=== PATIENT | male | born 1945 | race Caucasian/White ===

== ENCOUNTER 2019-06-15 13:38 | Emergency (ER) | payer MEDICARE, OTHER ==
[2019-06-15] MEDS ORDERED: Sodium Chloride 0.9% 1,000 ML IV ONE (13:50)
[2019-06-15] MEDS ORDERED: Ondansetron 4 MG/2 ML SDV IVPUSH ONE ×2 (13:50→14:25)
[2019-06-15] MEDS ORDERED: Sodium Chloride 0.9% 10 ML Syringe FLUSH PRN (13:50)
[2019-06-15 14:32] LABS: ANION GAP 16.5 mmol/L (5-15); CHLORIDE,CL 105 mmol/L (98-115); SODIUM,NA 149 mmol/L (136-145)
--- NOTE | 2019-06-15 14:32 | EDM.PDOC ---
ED HPI GENERAL MEDICAL PROBLEM - General Chief Complaint: General Stated Complaint: CAN'T KEEP ANYTHING DOWN Time Seen by Provider: 06/15/19 14:24 Source of Information: Reports: Patient History Limitations: Reports: No Limitations - History of Present Illness INITIAL COMMENTS - FREE TEXT/NARRATIVE: Patient is a 73-year-old gentleman who presents to the emergency department this afternoon with a complaint of abdominal pain, nausea and vomiting. Patient states approximately 1500 yesterday, He felt nauseous, had some abdominal discomfort and vomited. He has vomited several times since. Patient states the previous day he had eaten barbecue but consumed nothing since then. Patient describes abdominal pain as fullness, achy, and generalized. Patient thought that he saw blood in vomitus. Patient is currently on warfarin for atrial fibrillation. Patient wears oxygen at night and intermittent during the day and admits to chronic shortness of breath with ambulation. Patient denies chest pain, fever, blood in stool, dizziness, headache, blurry vision, or flank pain. Onset: Gradual Onset Date: 06/14/19 Onset Time: 15:00 Duration: Day(s): Location: Reports: Abdomen Quality: Reports: Ache, Pressure Severity: Mild Improves with: Reports: None Worsens with: Reports: None Associated Symptoms: Reports: Nausea/Vomiting Lower Abdomen Pain Score (Numeric/FACES): 4 - Related Data Allergies Allergy/AdvReac Type Severity Reaction Status Date / Time No Known Drug Allergies Allergy NKDA Verified 06/15/19 14:16 Home Meds: Home Meds Aspirin [Halfprin] 81 mg PO BRK 08/01/16 [History] Omeprazole Magnesium [Prilosec Otc] 40 mg PO DAILY 08/01/16 [History] Quinapril [Accupril] 10 mg PO DAILY 08/01/16 [History] Warfarin [Coumadin] 5 mg PO .Pharmacy To Dose 08/01/16 [History] atorvaSTATin [Lipitor] 10 mg PO MOWEFR 08/01/16 [History] metFORMIN [Glucophage] 500 mg PO DAILY 08/01/16 [History] Acetaminophen 500 mg PO Q4HR PRN 06/15/19 [History] Albuterol Sulfate [Albuterol Sulfate Hfa] 2 puff INH Q4HR PRN 06/15/19 [History] Diltiazem HCl [Cardizem Cd] 1 cap PO DAILY 06/15/19 [History] Furosemide [Lasix] 40 mg PO DAILY 06/15/19 [History] Iron Polysaccharides Complex [Ferrex 150] 1 cap PO DAILY 06/15/19 [History] Montelukast [Singulair] 10 mg PO BEDTIME 06/15/19 [History] Potassium Chloride [K-Tab ER] 1 tab PO DAILY 06/15/19 [History] Umeclidinium [place] [Incruse Ellipta*] 1 puff INH DAILY 06/15/19 [History] amLODIPine [Norvasc] 5 mg PO DAILY 06/15/19 [History] Social & Family History - Caffeine Use Caffeine Use: Reports: None ED ROS GENERAL - Review of Systems Review Of Systems: ROS reveals no pertinent complaints other than HPI. Constitutional: Reports: No Symptoms HEENT: Reports: No Symptoms Respiratory: Reports: No Symptoms Cardiovascular: Reports: No Symptoms Endocrine: Reports: No Symptoms GI/Abdominal: Reports: Abdominal Pain, Nausea, Vomiting : Reports: No Symptoms Musculoskeletal: Reports: No Symptoms Skin: Reports: No Symptoms Neurological: Reports: No Symptoms Psychiatric: Reports: No Symptoms Hematologic/Lymphatic: Reports: No Symptoms Immunologic: Reports: No Symptoms ED EXAM, GENERAL - Physical Exam Exam: See Below Exam Limited By: No Limitations General Appearance: Alert, WD/WN, No Apparent Distress Nose: Normal Inspection, No Blood Throat/Mouth: Normal Inspection, Normal Oropharynx, No Airway Compromise Head: Atraumatic, Normocephalic Neck: Normal Inspection Respiratory/Chest: No Respiratory Distress, Crackles (Bibasilar) Cardiovascular: No Murmur, Tachycardia, Irregularly Irregular GI/Abdominal: Normal Bowel Sounds, No Abnormal Bruit, Tender (Diffusely), Abnormal Bowel Sounds (Hypoactive), Other (Obese) Back Exam: Normal Inspection. No: CVA Tenderness (L), CVA Tenderness (R) Extremities: Pedal Edema (2+ bilateral) Neurological: Alert, Oriented, Normal Cognition Psychiatric: Normal Affect, Normal Mood Skin Exam: Warm, Dry, Intact, Normal Color, No Rash Lymphatic: No Adenopathy EKG INTERPRETATION EKG Date: 06/15/19 Time: 15:35 Rhythm: A-Fib Rate (Beats/Min): 120 [place]: Normal QRS: Normal ST-T: Normal QT: Normal Comparison: NA - No Prior EKG Course - Vital Signs Last Recorded V/S: Last Vital Signs Temp 98.1 F 06/15/19 16:38 Pulse 114 H 06/15/19 16:38 Resp 22 H 06/15/19 16:38 BP 192/104 H 06/15/19 16:38 Pulse Ox 91 L 06/15/19 16:38 - Orders/Labs/Meds Orders: Active Orders 24 hr Category Date Time Status EKG Documentation Completion [RC] ASDIRECTED Care 06/15/19 15:15 Active Peripheral IV Care [RC] . DIRECTED Care 06/15/19 13:51 Active Sodium Chloride 0.9% [Saline Flush] Med 06/15/19 13:50 Active 10 ml FLUSH Q8HR PRN Peripheral IV Insertion Adult [OM.PC] Routine Oth 06/15/19 13:50 Ordered EKG 12 Lead [EK] Routine Ther 06/15/19 15:14 Ordered Medication Orders Sodium Chloride (Saline Flush) 10 ml FLUSH Q8HR PRN PRN Reason: keep vein open Last Admin: 06/15/19 14:04 Dose: 10 ml Labs: Laboratory Tests 06/15/19 06/15/19 06/15/19 Range/Units 14:04 14:04 14:04 WBC 11.59 H (5.00-10.00) 10^3/uL RBC 6.19 H (4.50-6.00) 10^6/uL Hgb 13.7 (13.0-17.0) g/dL Hct 44.3 (40.0-52.0) % MCV 71.6 L (82.0-92.0) fL MCH 22.1 L (27.0-31.0) pg MCHC 30.9 L (32.0-36.0) g/dL RDW 20.7 H (11.5-14.5) % Plt Count 170 (150-400) 10^3/uL MPV 9.4 (7.4-10.4) fL Immature Gran % (Auto) 0.3 (0.0-5.0) % Neut % (Auto) 88.4 H (50.0-70.0) % Lymph % (Auto) 6.0 L (20.0-40.0) % [place] % (Auto) 5.1 (2.0-8.0) % Eos % (Auto) 0.0 L (1.0-3.0) % Baso % (Auto) 0.2 (0.0-1.0) % Immature Gran # (Auto) 0.04 (0.00-0.50) 10^3/uL Neut # (Auto) 10.25 H (2.50-7.00) 10^3/uL Lymph # (Auto) 0.69 L (1.00-4.00) 10^3/uL [place] # (Auto) 0.59 (0.10-0.80) 10^3/uL Eos # (Auto) 0.00 L (0.10-0.30) 10^3/uL Baso # (Auto) 0.02 (0.00-0.10) 10^3/uL PT (8.9-11.4) SEC INR (0.9-1.1) APTT (23.1-31.3) SEC Sodium 149 H (136-145) mmol/L Potassium 4.1 (3.3-5.3) mmol/L Chloride 105 (98-115) mmol/L Carbon Dioxide 31.6 (21.0-32.0) mmol/L Anion Gap 16.5 H (5-15) mmol/L BUN 20 (6-25) mg/dL Creatinine 0.95 (0.51-1.17) mg/dL Est Cr Clr Drug Dosing TNP Estimated GFR (MDRD) > 60 mL/min Glucose 118 H (75 - 99) mg/dL Calcium 9.6 (8.7-10.3) mg/dL Total Bilirubin 1.7 H (0.2-1.0) mg/dL AST 23 (15-37) U/L ALT 24 (12-78) U/L Alkaline Phosphatase 87 (46-116) IU/L Troponin I < 0.04 (0.00-0.070) ng/mL Total Protein 7.8 (6.4-8.2) g/dL Albumin 3.94 (3.00-4.80) g/dL Lipase 53 L (73-393) U/L 06/15/19 Range/Units 14:40 WBC (5.00-10.00) 10^3/uL RBC (4.50-6.00) 10^6/uL Hgb (13.0-17.0) g/dL Hct (40.0-52.0) % MCV (82.0-92.0) fL MCH (27.0-31.0) pg MCHC (32.0-36.0) g/dL RDW (11.5-14.5) % Plt Count (150-400) 10^3/uL MPV (7.4-10.4) fL Immature Gran % (Auto) (0.0-5.0) % Neut % (Auto) (50.0-70.0) % Lymph % (Auto) (20.0-40.0) % [place] % (Auto) (2.0-8.0) % Eos % (Auto) (1.0-3.0) % Baso % (Auto) (0.0-1.0) % Immature Gran # (Auto) (0.00-0.50) 10^3/uL Neut # (Auto) (2.50-7.00) 10^3/uL Lymph # (Auto) (1.00-4.00) 10^3/uL [place] # (Auto) (0.10-0.80) 10^3/uL Eos # (Auto) (0.10-0.30) 10^3/uL Baso # (Auto) (0.00-0.10) 10^3/uL PT 26.4 H (8.9-11.4) SEC INR 2.7 H (0.9-1.1) APTT 32.0 H (23.1-31.3) SEC Sodium (136-145) mmol/L Potassium (3.3-5.3) mmol/L Chloride (98-115) mmol/L Carbon Dioxide (21.0-32.0) mmol/L Anion Gap (5-15) mmol/L BUN (6-25) mg/dL Creatinine (0.51-1.17) mg/dL Est Cr Clr Drug Dosing Estimated GFR (MDRD) mL/min Glucose (75 - 99) mg/dL Calcium (8.7-10.3) mg/dL Total Bilirubin (0.2-1.0) mg/dL AST (15-37) U/L ALT (12-78) U/L Alkaline Phosphatase (46-116) IU/L Troponin I (0.00-0.070) ng/mL Total Protein (6.4-8.2) g/dL Albumin (3.00-4.80) g/dL Lipase (73-393) U/L Meds: Medications Generic Name Dose Route Start Last Admin Trade Name Son PRN Reason Stop Dose Admin Sodium Chloride 10 ml 06/15/19 13:50 06/15/19 14:04 Saline Flush FLUSH 10 ml Q8HR PRN Administration keep vein open Discontinued Medications Generic Name Dose Route Start Last Admin Trade Name Freq PRN Reason Stop Dose Admin Sodium Chloride 1,000 mls @ 999 mls/hr 06/15/19 13:50 06/15/19 14:03 Normal Saline IV 06/15/19 14:50 999 mls/hr .BOLUS ONE Administration Sodium Chloride 50 mls @ 200 mls/min 06/15/19 16:15 06/15/19 16:30 Normal Saline IV 200 mls/min ASDIRECTED CARLITA Administration Iopamidol 100 ml 06/15/19 16:13 06/15/19 16:31 Isovue-370 (76%) IV 06/15/19 16:14 100 ml ONETIME ONE Administration Metoclopramide HCl 10 mg 06/15/19 15:13 06/15/19 15:15 Reglan IVPUSH 06/15/19 15:14 10 mg ONETIME ONE Administration Metoclopramide HCl Confirm 06/15/19 15:14 06/15/19 15:26 Reglan Administered 06/15/19 15:15 Not Given Dose 10 mg .ROUTE .STK-MED ONE Ondansetron HCl 4 mg 06/15/19 13:50 06/15/19 14:03 Zofran IVPUSH 06/15/19 13:51 4 mg ONETIME ONE Administration Ondansetron HCl 4 mg 06/15/19 14:25 06/15/19 14:32 Zofran IVPUSH 06/15/19 14:26 4 mg ONETIME ONE Administration - Radiology Interpretation Free Text/Narrative:: CT abdomen and pelvis with IV contrast shows severe gastric outlet obstruction resulted in marked dilatation of the stomach and air-fluid levels, chronic volvulized transverse colon similar to previous examinations, moderate amount of free fluid scattered throughout the abdomen and pelvis, - Re-Assessments/Exams Free Text/Narrative Re-Assessment/Exam: 06/15/19 17:40 NG tube placed without difficulty and patient tolerated procedure well. 3 L dark gastric fluid. Patient afebrile, vital signs stable. Patient feeling more comfortable. 06/15/19 17:[address] Abdalla, Gen. surgery at . He will accept transfer of patient via ground [facility] ambulance. Departure - Departure Time of Disposition: 17:56 Disposition: DC/Tfer to Acute Hospital 02 Condition: Fair Clinical Impression: Bowel obstruction Qualifiers: Intestinal obstruction type: unspecified Intestinal obstruction extent: unspecified extent Qualified Code(s): K56.609 - Unspecified intestinal obstruction, unspecified as to partial versus complete obstruction Intractable vomiting Qualifiers: Vomiting type: unspecified Nausea presence: with nausea Qualified Code(s): R11.2 - Nausea with vomiting, unspecified - Discharge Information Referrals: Kim Serrano PA-C [Primary Care Provider] - Forms: ED Department Discharge - My Orders Last 24 Hours: My Active Orders 06/15/19 13:50 Sodium Chloride 0.9% [Saline Flush] 10 ml FLUSH Q8HR PRN Peripheral IV Insertion Adult [OM.PC] Routine 06/15/19 13:51 Peripheral IV Care [RC] . DIRECTED 06/15/19 15:14 EKG 12 Lead [EK] Routine 06/15/19 15:15 EKG Documentation Completion [RC] ASDIRECTED - Assessment/Plan Last 24 Hours: My Active Orders 06/15/19 13:50 Sodium Chloride 0.9% [Saline Flush] 10 ml FLUSH Q8HR PRN Peripheral IV Insertion Adult [OM.PC] Routine 06/15/19 13:51 Peripheral IV Care [RC] . DIRECTED 06/15/19 15:14 EKG 12 Lead [EK] Routine 06/15/19 15:15 EKG Documentation Completion [RC] ASDIRECTED Assessment:: Gastric outlet obstruction Plan: Transferred to
[2019-06-15] MEDS ORDERED: Metoclopramide 10 MG/2 ML SDV IVPUSH ONE (15:13)
[2019-06-15] MEDS ORDERED: Metoclopramide 10 MG/2 ML SDV ONE (15:14)
[2019-06-15] MEDS ORDERED: Iopamidol 755 Mg/ML 100 ML Bottle IV ONE (16:13)
[2019-06-15] MEDS ORDERED: Sodium Chloride 0.9% 50 ML IV SCH (16:15)
--- NOTE | 2019-06-15 17:25 | CT ---
[id number] CT/CT Abdomen Pelvis W IV EXAM: CT Abdomen Pelvis W IV CLINICAL DATA: ABDOMEN PAIN. COMPARISON STUDY: Multiple priors dating to 2010. FINDINGS: Markedly distended colon, involving the transverse segment. Cecum is located in the right lower quadrant, as the terminal ileum is seen on series 2 image 29. Additionally, the sigmoid segment is in its normal position as well. There is twisting of the mesentery, increased compared to the prior examination. Findings suggest volvulus, however location and appearance are not typical of either sigmoid or cecal volvulus. Of note, similar findings were seen in 2012 and 2010. However, there has been development of severe gastric outlet obstruction. Stomach is markedly dilated and fluid-filled with an air-fluid level, occupying majority of the left upper quadrant. This was not seen previously. A portion of the gastroduodenal junction appears caught in a mesenteric swirl in the left upper quadrant (axial series 2 images 103 through 112). Extensive mesenteric swirling was not evident on the prior examination. Additionally, there is moderate amount of free fluid scattered throughout the abdomen and pelvis most prominent in the right upper quadrant and mid abdomen. No pneumoperitoneum or pneumatosis. Liver, kidneys, pancreas, spleen, gallbladder, and adrenal glands are unremarkable. IMPRESSION: Severe gastric outlet obstruction resulting in marked dilation of the stomach and air-fluid level not seen previously. Findings are possibly secondary to new/increased mesenteric swelling in the left upper quadrant described in detail above. Moderate amount of free fluid scattered throughout the abdomen and pelvis, also not seen previously. However, no pneumatosis or pneumoperitoneum identified. No drainable fluid collection. Persistent chronic volvulized transverse colon, similar to numerous examinations dating to 2010. Findings also described in detail above. Results relayed to Isaiah Cortez at time of dictation. Tyrone Carrera MD 06/15/19 5030 Thank you for allowing us to participate in the care of your patient.
[2019-06-15] MEDS ORDERED: Lidocaine 2% Jelly 5 ML Tube MUCMEM SCH (17:30)
[2019-06-15] MEDS ORDERED: Sodium Chloride 0.9% 1,000 ML IV SCH (18:00)
[2019-06-15 18:40] VITALS: BP 162/94; PULSE 103
== END 2019-06-15 18:20 ==
LOC: KA.ED 13:38
DX: K56.609 Unspecified intestinal obstruction, unspecified as to partial versus complete obstruction (principal); K31.1 Adult hypertrophic pyloric stenosis; I48.91 Unspecified atrial fibrillation; Z79.82 Long term (current) use of aspirin; Z79.01 Long term (current) use of anticoagulants; Z79.84 Long term (current) use of oral hypoglycemic drugs; Z79.899 Other long term (current) drug therapy
CPT/HCPCS: 36415; 74177; 80053; 83690; 84484; 85025; 85610; 85730; 93005; 96361; 96374; 96375; 99284; 99285; J2405; J2765; J7030; J7050; Q9967

== ENCOUNTER 2019-12-08 16:38 | Emergency (ER) | payer MEDICARE, OTHER ==
[2019-12-08] MEDS ORDERED: Sodium Chloride 0.9% 10 ML Syringe FLUSH PRN (16:44)
--- NOTE | 2019-12-08 16:55 | EDM.PDOC ---
ED HPI GENERAL MEDICAL PROBLEM - General Chief Complaint: Respiratory Problem Stated Complaint: SHORTNESS OF BREATH Time Seen by Provider: 12/08/19 16:46 Source of Information: Reports: Patient, [facility] Records History Limitations: Reports: No Limitations - History of Present Illness INITIAL COMMENTS - FREE TEXT/NARRATIVE: 74 YO WM presents to ER complaining of shortness of breath x 3 days. Pt was recently hospitalized for reversal of colostomy with ileostomy. Pt reports he is moving his bowels without difficulty. Pt was transferred from [place] to [place] in [place] on 12/06/2019 and states his shortness of breath began soon after. Pt with PMH of Atrial fib and uses O2 PRN at night, HTN and NIDDM. Pt with Tachypnea and shortness of breath but denies chest pain at this time. Pt denies fever/ chills, no nausea/vomiting. Pt denies diaphoresis or dizziness at this time. Onset Date: 12/06/19 Duration: Day(s): (3) Location: Reports: Generalized Severity: Moderate Improves with: Reports: Rest Worsens with: Reports: Breathing, Movement Associated Symptoms: Reports: Malaise, Shortness of Breath, Weakness. Denies: Chest Pain, Cough, cough w sputum, Diaphoresis, Fever/Chills, Nausea/Vomiting, Syncope - Related Data Allergies Allergy/AdvReac Type Severity Reaction Status Date / Time No Known Drug Allergies Allergy NKDA Verified 06/15/19 14:16 Home Meds: Home Meds Aspirin [Halfprin] 81 mg PO BRK 08/01/16 [History] Omeprazole Magnesium [Prilosec Otc] 40 mg PO DAILY 08/01/16 [History] Quinapril [Accupril] 10 mg PO DAILY 08/01/16 [History] Warfarin [Coumadin] 5 mg PO .Pharmacy To Dose 08/01/16 [History] atorvaSTATin [Lipitor] 10 mg PO MOWEFR 08/01/16 [History] metFORMIN [Glucophage] 500 mg PO DAILY 08/01/16 [History] Acetaminophen 500 mg PO Q4HR PRN 06/15/19 [History] Albuterol Sulfate [Albuterol Sulfate Hfa] 2 puff INH Q4HR PRN 06/15/19 [History] Diltiazem HCl [Cardizem Cd] 1 cap PO DAILY 06/15/19 [History] Furosemide [Lasix] 40 mg PO DAILY 06/15/19 [History] Iron Polysaccharides Complex [Ferrex 150] 1 cap PO DAILY 06/15/19 [History] Montelukast [Singulair] 10 mg PO BEDTIME 06/15/19 [History] Potassium Chloride [K-Tab ER] 1 tab PO DAILY 06/15/19 [History] Umeclidinium [place] [Incruse Ellipta*] 1 puff INH DAILY 06/15/19 [History] amLODIPine [Norvasc] 5 mg PO DAILY 06/15/19 [History] Past Medical History HEENT History: Reports: None Cardiovascular History: Reports: High Cholesterol, Hypertension Respiratory History: Reports: COPD Gastrointestinal History: Reports: GERD Neurological History: Reports: None Psychiatric History: Reports: None Endocrine/Metabolic History: Reports: Diabetes, Type II, Obesity/BMI 30+ Hematologic History: Reports: None Immunologic History: Reports: None Oncologic (Cancer) History: Reports: None Dermatologic History: Reports: None - Past Surgical History HEENT Surgical History: Reports: None Cardiovascular Surgical History: Reports: None Respiratory Surgical History: Reports: None GI Surgical History: Reports: None Male Surgical History: Reports: Other (See Below) Other Male Surgeries/Procedures: Prostate surgery Musculoskeletal Surgical History: Reports: Arthroscopic Knee Dermatological Surgical History: Reports: None Social & Family History - Caffeine Use Caffeine Use: Reports: None ED ROS GENERAL - Review of Systems Review Of Systems: See Below Constitutional: Reports: No Symptoms, Fatigue HEENT: Reports: No Symptoms Respiratory: Reports: Shortness of Breath Cardiovascular: Reports: No Symptoms Endocrine: Reports: No Symptoms GI/Abdominal: Reports: No Symptoms : Reports: No Symptoms Musculoskeletal: Reports: No Symptoms Skin: Reports: No Symptoms Neurological: Reports: No Symptoms Psychiatric: Reports: No Symptoms Hematologic/Lymphatic: Reports: No Symptoms Immunologic: Reports: No Symptoms ED EXAM, GENERAL - Physical Exam Exam: See Below Exam Limited By: No Limitations General Appearance: Alert, WD/WN, Mild Distress Throat/Mouth: Normal Inspection, Normal Lips, Normal Teeth, Normal Gums, Normal Oropharynx, Normal Voice, No Airway Compromise Head: Atraumatic, Normocephalic Neck: Normal Inspection, Supple, Non-Tender, Full Range of Motion Respiratory/Chest: Chest Non-Tender, Decreased Breath Sounds, Accessory Muscle Use, Splinting Cardiovascular: Normal Peripheral Pulses, Regular Rate, Rhythm, No Edema, No Gallop, No JVD, No Murmur, No Rub GI/Abdominal: Normal Bowel Sounds, Soft, Non-Tender, No Organomegaly, No Distention, No Abnormal Bruit, No Mass Back Exam: Normal Inspection, Full Range of Motion, NT Extremities: Normal Inspection, Normal Range of Motion, Non-Tender, Normal Capillary Refill, No Pedal Edema Neurological: Alert, Oriented, CN II-XII Intact, Normal Cognition, Normal Gait, Normal Reflexes, No Motor/Sensory Deficits Psychiatric: Normal Affect, Normal Mood Skin Exam: Warm, Dry, Intact, Normal Color, No Rash Lymphatic: No Adenopathy EKG INTERPRETATION EKG Date: 12/08/19 Time: 17:48 Rhythm: A-Fib Rate (Beats/Min): 104 [place]: Normal P-Wave: Absent QRS: Normal ST-T: Normal QT: Normal Course - Orders/Labs/Meds Orders: Active Orders 24 hr Category Date Time Status Cardiac Monitoring [RC] . DIRECTED Care 12/08/19 16:44 Active EKG Documentation Completion [RC] ASDIRECTED Care 12/08/19 16:45 Active Peripheral IV Care [RC] . DIRECTED Care 12/08/19 16:45 Active Chest 1V Frontal [CR] Stat Exams 12/08/19 16:44 Ordered B-TYPE NATRIURETIC PEPTIDE,BNP [CHEM] Stat Lab 12/08/19 15:05 Results CK W CKMB [CHEM] Stat Lab 12/08/19 15:05 Results COMPREHENSIVE METABOLIC PN,CMP [CHEM] Stat Lab 12/08/19 15:05 Results INR,PT,PROTHROMBIN TIME [COAG] Stat Lab 12/08/19 15:05 Received PTT,PARTIAL THROMBOPLSTIN TIME [COAG] Stat Lab 12/08/19 15:05 Received TROPONIN I [CHEM] Stat Lab 12/08/19 15:05 Results Sodium Chloride 0.9% [Saline Flush] Med 12/08/19 16:44 Active 10 ml FLUSH Q8HR PRN Peripheral IV Insertion Adult [OM.PC] Routine Oth 12/08/19 16:44 Ordered EKG 12 Lead [EK] Routine Ther 12/08/19 16:44 Ordered Medication Orders Sodium Chloride (Saline Flush) 10 ml FLUSH Q8HR PRN PRN Reason: keep vein open Labs: Laboratory Tests 12/08/19 12/08/19 12/08/19 Range/Units 15:05 17:05 17:08 WBC 14.02 H (5.00-10.00) 10^3/uL RBC 3.10 L (4.50-6.00) 10^6/uL Hgb 8.4 L D (13.0-17.0) g/dL Hct 26.6 L (40.0-52.0) % MCV 85.8 D (82.0-92.0) fL MCH 27.1 (27.0-31.0) pg MCHC 31.6 L (32.0-36.0) g/dL RDW 20.1 H (11.5-14.5) % Plt Count 227 (150-400) 10^3/uL MPV 9.4 (7.4-10.4) fL Immature Gran % (Auto) 0.4 (0.0-5.0) % Neut % (Auto) 85.1 H (50.0-70.0) % Lymph % (Auto) 5.2 L (20.0-40.0) % [place] % (Auto) 8.0 (2.0-8.0) % Eos % (Auto) 1.2 (1.0-3.0) % Baso % (Auto) 0.1 (0.0-1.0) % Immature Gran # (Auto) 0.05 (0.00-0.50) 10^3/uL Neut # (Auto) 11.94 H (2.50-7.00) 10^3/uL Lymph # (Auto) 0.73 L (1.00-4.00) 10^3/uL [place] # (Auto) 1.12 H (0.10-0.80) 10^3/uL Eos # (Auto) 0.17 (0.10-0.30) 10^3/uL Baso # (Auto) 0.01 (0.00-0.10) 10^3/uL ABG pH 7.41 (7.35-7.45) ABG pCO2 39 (35-45) mmHG ABG pO2 67 L (80-105) mmHG ABG HCO3 24.9 (22-26) mmol/L ABG Total CO2 26 (23-27) mmol/L ABG O2 Saturation 93 L (95-98) % ABG Base Excess 0 (-2-3) mmol/L O2 Delivery Device Nasal cannula Oxygen Flow Rate 4 L/min Sodium 143 (136-145) mmol/L Potassium 3.7 (3.3-5.3) mmol/L Chloride 104 (98-115) mmol/L Carbon Dioxide 27.0 (21.0-32.0) mmol/L Anion Gap 15.7 H (5-15) mmol/L BUN 17 (6-25) mg/dL Creatinine 0.75 (0.51-1.17) mg/dL Est Cr Clr Drug Dosing TNP Estimated GFR (MDRD) > 60 mL/min Glucose 159 H (75 - 99) mg/dL Calcium 7.7 L D (8.7-10.3) mg/dL Total Bilirubin 0.3 (0.2-1.0) mg/dL AST 34 (15-37) U/L ALT 31 (12-78) U/L Alkaline Phosphatase 78 (46-116) IU/L Creatine Kinase 36 (26-276) U/L CK-MB (CK-2) 1.00 (0.00-4.30) ng/mL Troponin I < 0.04 (0.00-0.070) ng/mL Total Protein 5.9 L (6.4-8.2) g/dL Albumin 2.09 L (3.00-4.80) g/dL Meds: Medications Generic Name Dose Route Start Last Admin Trade Name Freq PRN Reason Stop Dose Admin Sodium Chloride 10 ml 12/08/19 16:44 Saline Flush FLUSH Q8HR PRN keep vein open Departure - Departure Time of Disposition: 18:35 Disposition: DC/Tfer to Acute Hospital 02 Condition: Serious Clinical Impression: Abdominal distention, Hypoxia Congestive heart failure Qualifiers: Heart failure chronicity: acute Atrial fibrillation Qualifiers: Atrial fibrillation type: longstanding persistent Qualified Code(s): I48.11 - Longstanding persistent atrial fibrillation - Discharge Information Referrals: Kim Serrano PA-C [Primary Care Provider] - Forms: ED Department Discharge, Interfacility Transfer EMTALA Sepsis Event Note - Focused Exam Date Exam was Performed: 12/08/19 Time Exam was Performed: 18:05 - My Orders Last 24 Hours: My Active Orders 12/08/19 15:05 B-TYPE NATRIURETIC PEPTIDE,BNP [CHEM] Stat CK W CKMB [CHEM] Stat COMPREHENSIVE METABOLIC PN,CMP [CHEM] Stat INR,PT,PROTHROMBIN TIME [COAG] Stat PTT,PARTIAL THROMBOPLSTIN TIME [COAG] Stat TROPONIN I [CHEM] Stat 12/08/19 16:44 Cardiac Monitoring [RC] . DIRECTED Chest 1V Frontal [CR] Stat Sodium Chloride 0.9% [Saline Flush] 10 ml FLUSH Q8HR PRN Peripheral IV Insertion Adult [OM.PC] Routine EKG 12 Lead [EK] Routine 12/08/19 16:45 EKG Documentation Completion [RC] ASDIRECTED Peripheral IV Care [RC] . DIRECTED - Assessment/Plan Last 24 Hours: My Active Orders 12/08/19 15:05 B-TYPE NATRIURETIC PEPTIDE,BNP [CHEM] Stat CK W CKMB [CHEM] Stat COMPREHENSIVE METABOLIC PN,CMP [CHEM] Stat INR,PT,PROTHROMBIN TIME [COAG] Stat PTT,PARTIAL THROMBOPLSTIN TIME [COAG] Stat TROPONIN I [CHEM] Stat 12/08/19 16:44 Cardiac Monitoring [RC] . DIRECTED Chest 1V Frontal [CR] Stat Sodium Chloride 0.9% [Saline Flush] 10 ml FLUSH Q8HR PRN Peripheral IV Insertion Adult [OM.PC] Routine EKG 12 Lead [EK] Routine 12/08/19 16:45 EKG Documentation Completion [RC] ASDIRECTED Peripheral IV Care [RC] . DIRECTED Assessment:: 1. Hypoxemia 2. CHF exacerbation 3. nonspecific bowel gas pattern s/p reversal of colostomy 11/25/2019 4. leukocytosis/fever 5. Atrial fibrillation Plan: 1. transfer to [facility]- 2. supportive care- [place] O2 @ 3L 3. blood cultures x 2 4. consider prophylaxis antibiotics
[2019-12-08 17:22] LABS: O2 DELIVERY DEVICE NASAL CANNULA
[2019-12-08 17:28] LABS: BASE EXCESS ARTERIAL 0 mmol/L (-2-3); BICARBONATE,ARTERIAL 24.9 mmol/L (22-26); O2 FLOW RATE 4 L/min; O2 SATURATION ARTERIAL 93 % (95-98); PCO2 ARTERIAL 39 mmHG (35-45); PO2 ARTERIAL 67 mmHG (80-105)
[2019-12-08 17:52] LABS: ANION GAP 15.7 mmol/L (5-15); CHLORIDE,CL 104 mmol/L (98-115); SODIUM,NA 143 mmol/L (136-145)
--- NOTE | 2019-12-08 18:03 | CR ---
[id number] RAD/RAD Chest PA or AP 1V; [id number] RAD/RAD Chest PA And Lateral EXAM: RAD Chest PA or AP 1V, RAD Chest PA And Lateral INDICATION: SHORTNESS OF BREATH. COMPARISON: CT examinations from 2012 and 2018. Chest imaging from 2010. DISCUSSION: Low lung volumes result in bibasilar vascular crowding/atelectasis. Blunting of the costophrenic sulci is nonspecific. Small effusions are possible. Cardiac silhouette demonstrates cardiomegaly. There is also mild central vascular congestion. Correlate for congestive heart failure exacerbation. Again seen is a markedly abnormal bowel gas pattern. This is similar to CT examination from June 15, 2019, which demonstrates numerous chronic findings contribute to chronic severe bowel dilation. If there is concern for acute intra-abdominal pathology, contrast-enhanced CT examination is recommended. IMPRESSION: Possible mild changes of fluid retention the chest. Chest is otherwise unremarkable. Abnormal appearance of the abdomen, described above. Tyrone Carrera MD 12/08/19 [id number] Thank you for allowing us to participate in the care of your patient.
[2019-12-08] MEDS ORDERED: Furosemide 40 MG/4 ML VIAL IVPUSH ONE (18:05)
[2019-12-08 20:25] VITALS: BP 190/85; PULSE 132
== END 2019-12-08 19:10 ==
LOC: KA.ED 16:38
DX: I11.0 Hypertensive heart disease with heart failure (principal); I50.9 Heart failure, unspecified; I48.11 Longstanding persistent atrial fibrillation; D72.829 Elevated white blood cell count, unspecified; R09.02 Hypoxemia; R14.0 Abdominal distension (gaseous); E78.00 Pure hypercholesterolemia, unspecified; J44.9 Chronic obstructive pulmonary disease, unspecified; E11.9 Type 2 diabetes mellitus without complications; E66.9 Obesity, unspecified; K21.9 Gastro-esophageal reflux disease without esophagitis; Z79.82 Long term (current) use of aspirin; Z79.01 Long term (current) use of anticoagulants; Z79.899 Other long term (current) drug therapy; Z79.84 Long term (current) use of oral hypoglycemic drugs; Z68.38 Body mass index [BMI] 38.0-38.9, adult
CPT/HCPCS: 36600; 71045; 71046; 80053; 82550; 82553; 82803; 83880; 84484; 85025; 85610; 85730; 87804; 93005; 96374; 99284; 99285-25; J1940

== ENCOUNTER 2021-02-23 14:19 | Emergency (ER) | payer MEDICARE, OTHER ==
[2021-02-23 14:30] VITALS: BP 106/71; PULSE 57
--- NOTE | 2021-02-23 14:31 | EDM.PDOC ---
ED HPI GENERAL MEDICAL PROBLEM - General Chief Complaint: Respiratory Problem Stated Complaint: SOB Time Seen by Provider: 02/23/21 14:30 Source of Information: Reports: Patient - History of Present Illness INITIAL COMMENTS - FREE TEXT/NARRATIVE: Clarke, 75-year-old male, resident at [facility] is sent to the emergency department today's secondary of shortness of breath that is been worsening over the past 3 or 4 days. There is no provider to provider report given. Clarke is accompanied with laboratory analysis that was drawn today by a third provider not involved with the transfer. I would assume these are routine laboratory analysis this that include A1c thyroid and blood for the cause coagulation clinic which is not available to me. There is nothing here that would be fully pertinent and diagnostic factors of respiratory issues. His provides history as well as Clarke that is his been he is increasingly difficult with breathing aspects over the past 3 to 4 days. He denies fever chills. Was a Covid positive months prior and has no risk factor exposures at this time. His ostomy is working appropriately other than there are some skin concerns surrounding it and it is noted the hernia is stable as surgery is not willing to work on it at this time according to his 's input. His stoma is protruding as it appears partially prolapsed hanging at least 6 cm into his ostomy bag. Onset: Gradual Duration: Day(s): Location: Reports: Chest Quality: Reports: Pressure Severity: Moderate Improves with: Reports: None Worsens with: Reports: Other Associated Symptoms: Reports: No Other Symptoms Treatments STREET [employer]: Reports: Oxygen - Related Data Allergies Allergy/AdvReac Type Severity Reaction Status Date / Time No Known Drug Allergies Allergy NKDA Verified 02/23/21 14:35 Home Meds: Home Meds Warfarin [Coumadin] 5 mg PO .Pharmacy To Dose 08/01/16 [History] Iron Polysaccharides Complex [Ferrex 150] 1 cap PO DAILY 06/15/19 [History] Acetaminophen [Tylenol] 650 mg PO Q6H PRN 02/23/21 [History] Amiodarone HCl 100 mg PO DAILY 02/23/21 [History] Ascorbate Calcium [Vitamin C] 500 mg PO Q48H 02/23/21 [History] Bacitracin [Bacitracin Oint] 1 applic TOP BID 02/23/21 [History] Chlorhexidine Gluconate [Peridex 0.12% Rinse] 15 ml BUCCAL BID 02/23/21 [History] Cholecalciferol (Vitamin D3) [Vitamin D3] 2,000 unit PO DAILY 02/23/21 [History] Citalopram Hydrobromide [Celexa] 40 mg PO BEDTIME 02/23/21 [History] [place]au Tar [T-Plus] 1 applic TOP TUFR 02/23/21 [History] Latanoprost/Pf [Latanoprost 0.005% Eye Drop] 1 drop EYEBOTH BEDTIME 02/23/21 [History] Loperamide HCl [Imodium A-D] 2 mg PO ASDIRECTED PRN 02/23/21 [History] Melatonin 3 mg PO BEDTIME 02/23/21 [History] Metoprolol Tartrate 12.5 mg PO DAILY 02/23/21 [History] Midodrine 10 mg PO TID 02/23/21 [History] Non-Formulary Medication [NF Drug] 133 mg PO BID 02/23/21 [History] Psyllium Husk (With Sugar) [Fiber Powder] 6 gram PO BID 02/23/21 [History] Simethicone 80 mg PO Q4H PRN 02/23/21 [History] Tamsulosin HCl [Flomax] 0.8 mg PO BEDTIME 02/23/21 [History] Warfarin [Coumadin] 2.5 mg PO MOFR 02/23/21 [History] Past Medical History HEENT History: Reports: None, Glaucoma, Impaired Vision, Other (See Below) (Double vision that is precipitated in the past weeks) Cardiovascular History: Reports: Afib, Heart Failure, High Cholesterol, Hypertension, Other (See Below) (Orthostatic hypotension) Respiratory History: Reports: COPD, Other (See Below) (Restrictive lung disease, Chronic atelectasis) Gastrointestinal History: Reports: Bowel Obstruction, GERD, Other (See Below) (Abdominal hernia in the vicinity of his ostomy site) Neurological History: Reports: None Psychiatric History: Reports: None, Depression Endocrine/Metabolic History: Reports: Diabetes, Type II, Obesity/BMI 30+ Hematologic History: Reports: None Immunologic History: Reports: None Oncologic (Cancer) History: Reports: None, Prostate Dermatologic History: Reports: None - Past Surgical History HEENT Surgical History: Reports: None Cardiovascular Surgical History: Reports: None Respiratory Surgical History: Reports: None GI Surgical History: Reports: Colostomy, Hernia, Abdominal, Lysis of Adhesions Male Surgical History: Reports: Prostate Biopsy, Prostatectomy, Other (See Below) Other Male Surgeries/Procedures: Prostate surgery Musculoskeletal Surgical History: Reports: Arthroscopic Knee Dermatological Surgical History: Reports: None - Past Imaging History Past Imaging History: Reports: Cardiac Echo, CAT Scan, Xray Social & Family History - Family History Family Medical History: No Pertinent Family History - Tobacco Use Tobacco Use Status *Q: Never Tobacco User Used Tobacco, but Quit: No Smoking Cessation Information Provided To Patient: No Second Hand Smoke Exposure: No - Caffeine Use Caffeine Use: Reports: None - Alcohol Use Alcohol Use History: No - Recreational Drug Use Recreational Drug Use: No ED ROS GENERAL - Review of Systems Review Of Systems: Comprehensive ROS is negative, except as noted in HPI. ED EXAM, GENERAL - Physical Exam Exam: See Below Free Text/Narrative:: Alert, oriented, in no major distress. No cyanosis nor pallor is appreciated. He converses with this appropriately when questioned. HEENT is negative discharge or deformity. Pupils reactive he does acknowledge diplopia which has occurred in the past month with no proven causation undergoing a MRI which was normal as well as visual examination. Neck is kennedy supple I do not appreciate JVD nor bruit. Thorax is extremely diminished with rhonchi heard in the very upper lobes the remainder is significantly depressed. No wheezes are noted. Cardiac is S1-S2 with a grade 1 systolic murmur rate is consistent with a controlled atrial fibrillation, radial pulse is correlating for the most part at least 90%. Abdomen is rotund soft bowel sounds are present there is a ostomy to the right side with significant protrusion/prolapse of the ostomy 6+ centimeters with green drainage in the ostomy bag. There is significant chronic appearing skin excoriation to the lateral aspect of his ostomy bag. Mild hernia appearance is noted in that region with his position changes. Rectal was deferred. His lower extremities have +1 edema but are very dark in color as if venous insufficiency of chronic in nature according to his sister's comment. Skin is warm and dry pulses faint. He converses with no difficulty stating this is been increasing over the past few days. It is noted that he is a recovered Covid infection from last fall and he also had routine lab work for CBC comprehensive panel TSH A1c and anticoagulation completed as what appears to be routine work with not all of the results available to me at the time of his presentation. #1 Interpretation EKG Date: 02/23/21 Time: 14:40 Rhythm: A-Fib Rate (Beats/Min): 67 Chambers: Normal P-Wave: Absent QRS: Wide ST-T: Normal QT: Normal Comparison: Change From Previous EKG (Controlled rate now versus comparison) Course - Vital Signs Last Recorded V/S: Last Vital Signs Temp 97.9 F 02/23/21 14:23 Pulse 57 L 02/23/21 14:23 Resp 24 H 02/23/21 14:23 BP 106/71 02/23/21 14:23 Pulse Ox 91 L 02/23/21 14:23 - Orders/Labs/Meds Orders: Active Orders 24 hr Category Date Time Status EKG Documentation Completion [RC] ASDIRECTED Care 02/23/21 14:49 Ordered Chest 1V Frontal [CR] Stat Exams 02/23/21 14:49 Ordered B-TYPE NATRIURETIC PEPTIDE,BNP [CHEM] Stat Lab 02/23/21 14:43 Ordered CK W CKMB [CHEM] Stat Lab 02/23/21 14:43 Ordered CRP [C-REACTIVE PROTEIN] [CHEM] Stat Lab 02/23/21 14:43 Ordered INR,PT,PROTHROMBIN TIME [COAG] Stat Lab 02/23/21 14:43 Ordered LACTIC ACID [CHEM] Stat Lab 02/23/21 14:44 Ordered TROPONIN I [CHEM] Stat Lab 02/23/21 14:43 Ordered EKG 12 Lead [EK] Urgent Ther 02/23/21 14:49 Ordered - Re-Assessments/Exams Free Text/Narrative Re-Assessment/Exam: 02/23/21 17:03 Lengthy discussion with Isaiah Duron on-call provider for [facility]. I gave him details of the visit and findings with no findings for acute admission status the possibility for increasing oxygen orders for 05/06 and returning to the facility versus staying here observation status. In discussion with Clarke he feels he would be adequately served by returning to the [facility] where they are able to monitor him 24 hours a day as well. He also feels financial adequacy by returning to his bed as the potential for still paying for that bed while being here in observation status as well as medication coverage is limited in observation status. He does agree to returning to the [facility] and Isaiah Duron was notified of that. They will pursue respiratory therapy for consultation and will work on the criteria for Medicare and oxygen use 24 hours a day. Departure - Departure Time of Disposition: 17:01 Disposition: DC/Tfer to SNF 03 Condition: Fair Clinical Impression: Chronic renal insufficiency, stage III (moderate), Hypoxemia, Anticoagulant long-term use, COPD exacerbation, Para-ileostomy hernia, Altered bowel elimination due to intestinal ostomy - Discharge Information *PRESCRIPTION DRUG MONITORING PROGRAM REVIEWED*: Not Applicable *COPY OF PRESCRIPTION DRUG MONITORING REPORT IN PATIENT GREG: Not Applicable Instructions: Chronic Kidney Disease, Adult, COPD and Physical Activity Referrals: Jackie Strong MD [Primary Care Provider] - Isaiah Duron ACCOUNTING RECRUITER [Nurse Practitioner] - Forms: ED Department Discharge Additional Instructions: All lab work today and Xray, show no evidence of infection or involvement with your heart. Your heart numbers are negative for evidence of any heart attack with a slight increase in your heart failure number which is thought to be due to the crowding of your chest that was seen on chest x-ray. You have baseline basilar atelectasis which will hopefully improve with the use of the Acapella device we demonstrated and trained you with in the emergency department. Continue all your medications as previously directed, with the addition of oxygen to be used 24 hours a day. 2 to 3 L during the day, and your previous setting with your CPAP at night. Random pulse oximetry levels to be obtained making sure oxygen saturations are above 90%. Isaiah is aware and was discussed this case and will start orders for respiratory therapy for oxygen demand and paperwork processing for Medicare. They will follow up with you in the upcoming week for reevaluation of this process and continuation of your care. Sepsis Event Note (ED) - Evaluation Sepsis Screening Result: No Definite Risk - Focused Exam Vital Signs: Vital Signs Temp Pulse Resp BP Pulse Ox 02/23/21 14:23 97.9 F 57 L 24 H 106/71 91 L - Problem List & Annotations (1) Altered bowel elimination due to intestinal ostomy SNOMED Code(s): 17192441, 123621515 Code(s): K94.19 - OTHER COMPLICATIONS OF ENTEROSTOMY Status: Acute Current Visit: Yes (2) Para-ileostomy hernia SNOMED Code(s): 534279098 Code(s): K94.19 - OTHER COMPLICATIONS OF ENTEROSTOMY; K43.5 - PARASTOMAL HERNIA WITHOUT OBSTRUCTION OR GANGRENE Status: Acute Current Visit: Yes (3) COPD exacerbation SNOMED Code(s): 688546538 Code(s): J44.1 - CHRONIC OBSTRUCTIVE PULMONARY DISEASE W (ACUTE) EXACERBATION Status: Acute Current Visit: Yes (4) Anticoagulant long-term use SNOMED Code(s): 847560811 Code(s): Z79.01 - CUSTODIAL (CURRENT) USE OF ANTICOAGULANTS Status: Acute Current Visit: Yes (5) Atrial fibrillation SNOMED Code(s): 75188944 Code(s): I48.91 - UNSPECIFIED ATRIAL FIBRILLATION Status: Acute Current Visit: No Qualifiers: Atrial fibrillation type: longstanding persistent Qualified Code(s): I48.11 - Longstanding persistent atrial fibrillation (6) Chronic renal insufficiency, stage III (moderate) SNOMED Code(s): 139855439 Code(s): N18.30 - CHRONIC KIDNEY DISEASE, STAGE 3 UNSPECIFIED Status: Acute Current Visit: Yes Qualifiers: Chronic kidney disease stage 3 subtype: stage 3b (GFR 30-44) Qualified Code(s): N18.32 - Chronic kidney disease, stage 3b (7) Hypoxemia SNOMED Code(s): 057379119 Code(s): R09.02 - HYPOXEMIA Status: Acute Current Visit: Yes - Problem List Review Problem List Initiated/Reviewed/Updated: Yes - My Orders Last 24 Hours: My Active Orders 02/23/21 14:43 B-TYPE NATRIURETIC PEPTIDE,BNP [CHEM] Stat CK W CKMB [CHEM] Stat CRP [C-REACTIVE PROTEIN] [CHEM] Stat INR,PT,PROTHROMBIN TIME [COAG] Stat TROPONIN I [CHEM] Stat 02/23/21 14:44 LACTIC ACID [CHEM] Stat 02/23/21 14:49 EKG Documentation Completion [RC] ASDIRECTED Chest 1V Frontal [CR] Stat EKG 12 Lead [EK] Urgent - Assessment/Plan Last 24 Hours: My Active Orders 02/23/21 14:43 B-TYPE NATRIURETIC PEPTIDE,BNP [CHEM] Stat CK W CKMB [CHEM] Stat CRP [C-REACTIVE PROTEIN] [CHEM] Stat INR,PT,PROTHROMBIN TIME [COAG] Stat TROPONIN I [CHEM] Stat 02/23/21 14:44 LACTIC ACID [CHEM] Stat 02/23/21 14:49 EKG Documentation Completion [RC] ASDIRECTED Chest 1V Frontal [CR] Stat EKG 12 Lead [EK] Urgent Plan: All lab work today and Xray, show no evidence of infection or involvement with your heart. Your heart numbers are negative for evidence of any heart attack with a slight increase in your heart failure number which is thought to be due to the crowding of your chest that was seen on chest x-ray. You have baseline basilar atelectasis which will hopefully improve with the use of the Acapella device we demonstrated and trained you with in the emergency department. Continue all your medications as previously directed, with the addition of oxygen to be used 24 hours a day. 2 to 3 L during the day, and your previous setting with your CPAP at night. Random pulse oximetry levels to be obtained making sure oxygen saturations are above 90%. Isaiah is aware and was discussed this case and will start orders for respiratory therapy for oxygen demand and paperwork processing for Medicare. They will follow up with you in the upcoming week for reevaluation of this process and continuation of your care.
--- NOTE | 2021-02-23 15:14 | CR ---
[id number] RAD/RAD Chest PA or AP 1V EXAM: RAD Chest PA or AP 1V INDICATION: SOB COMPARISON: Multiple priors, most recent from December 08, 2019. Discussion/impression: Low lung volumes bilaterally resulting in vascular crowding and atelectasis. Cardiomegaly and mild central vascular congestion. No evidence of pneumonia other acute findings. Tyrone Carrera MD 02/23/21 7147 Thank you for allowing us to participate in the care of your patient.
== END 2021-02-23 17:10 ==
LOC: KA.ED 14:19
DX: J44.1 Chronic obstructive pulmonary disease with (acute) exacerbation (principal); N18.30 Chronic kidney disease, stage 3 unspecified; R09.02 Hypoxemia; K43.5 Parastomal hernia without obstruction or gangrene; I48.91 Unspecified atrial fibrillation; I13.0 Hypertensive heart and chronic kidney disease with heart failure and stage 1 through stage 4 chronic kidney disease, or unspecified chronic kidney disease; I50.9 Heart failure, unspecified; K21.9 Gastro-esophageal reflux disease without esophagitis; E11.22 Type 2 diabetes mellitus with diabetic chronic kidney disease; E66.9 Obesity, unspecified; Z68.38 Body mass index [BMI] 38.0-38.9, adult; Z79.01 Long term (current) use of anticoagulants; Z79.899 Other long term (current) drug therapy
CPT/HCPCS: 36415; 71045; 82550; 82553; 83605; 83880; 84484; 85610; 86140; 93005; 99284; 99285-25